=== PATIENT | male | born 1985 | race Two or more races ===

== ENCOUNTER 2024-07-25 16:18 | Emergency (ER) | payer MEDICAID, OTHER ==
[~2024-07-25] VITALS: Ht 177.8 cm; Wt 104.0 kg
[2024-07-25 16:23] VITALS: O2SAT 98
[2024-07-25 18:39] VITALS: BP 174/108; PULSE 87; RESP 18; TEMP 36.9; O2SAT 98
== END 2024-07-25 18:42 | disposition home or self-care (01) ==
LOC: ER 16:18
DX: S83.91XA Sprain of unspecified site of right knee, initial encounter (principal); S50.01XA Contusion of right elbow, initial encounter; I10 Essential (primary) hypertension; Z98.890 Other specified postprocedural states; W19.XXXA Unspecified fall, initial encounter; Y93.89 Activity, other specified; Y92.89 Other specified places as the place of occurrence of the external cause; Y99.8 Other external cause status
CPT/HCPCS: 73080; 73562; 99284